=== PATIENT | male | born 1960 | race Caucasian/White ===

== ENCOUNTER 2016-06-29 08:53 | Observation (INO) | payer OTHER ==
[~2016-06-29] VITALS: Ht 188 cm; Wt 109.6 kg
[2016-07-01] MEDS ORDERED: LANTUS100 UNITS/ SQ (13:25)
[2016-07-01] MEDS ORDERED: ZESTRIL DPS10 MG PO (13:26)
[2016-07-01] MEDS ORDERED: NOVOLOG100 UNIT/2 SQ (13:26)
[2016-07-01] MEDS ORDERED: HYDROCHLOROTHIA25 MG PO (13:27)
[2016-07-01] MEDS ORDERED: VITAMIN B-12500 MCG PO (13:27)
[2016-07-01] MEDS ORDERED: SYNTHROID DP0.125 MG PO (13:27)
[2016-07-01] MEDS ORDERED: KEFLEX-DPS500 MG PO (13:28)
[2016-07-01] MEDS ORDERED: VITAMIN D-32000 UNI1 PO (13:28)
[2016-07-01] MEDS ORDERED: FLEXERIL DPS5 MG PO (13:29)
[2016-07-01] MEDS ORDERED: PHENERGAN DPS25 MG PO (13:29)
[2016-07-01] MEDS ORDERED: LORTAB 7.5-3251 EACH PO (13:29)
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
== END 2016-06-30 14:00 | disposition home or self-care (01) ==
LOC: SSS 08:53 → 5MS 11:22 → SSS 11:22 → 5MS 12:00 → SSS 12:00 → 5MS 18:57 → SSS 18:57 → 5MS 06-30 14:00
PROVIDERS: ADMIT Orthopaedic Surgery
PROC: 0RBJ4ZZ Excision of Right Shoulder Joint, Percutaneous Endoscopic Approach (ICD-10-PCS; principal; 2016-06-29)
PROC: 0PB94ZZ Excision of Right Clavicle, Percutaneous Endoscopic Approach (ICD-10-PCS; principal; 2016-06-29)
DX: M75.101 Unspecified rotator cuff tear or rupture of right shoulder, not specified as traumatic (principal); M25.811 Other specified joint disorders, right shoulder; M19.011 Primary osteoarthritis, right shoulder; I10 Essential (primary) hypertension; E66.9 Obesity, unspecified; Z68.30 Body mass index [BMI] 30.0-30.9, adult; E11.9 Type 2 diabetes mellitus without complications; Z98.890 Other specified postprocedural states; Z88.8 Allergy status to other drugs, medicaments and biological substances; Z79.899 Other long term (current) drug therapy; Z79.82 Long term (current) use of aspirin; E07.9 Disorder of thyroid, unspecified